=== PATIENT | female | born 1935 | race Caucasian/White ===

== ENCOUNTER 2019-02-08 14:19 | Inpatient (IN) ==
[2019-02-08] MEDS ORDERED: TYLENOL PO PRN (23:33)
[2019-02-08] MEDS ORDERED: LOMOTIL PO PRN (23:33)
[2019-02-08] MEDS ORDERED: BLISTEX MEDICATED BERRY LIP BALM TOP PRN (23:33)
[2019-02-09] MEDS: LOPRESSOR PO SCH ×3 (00:31→19:59)
[2019-02-09] MEDS: PHENERGAN PO PRN ×2 (00:31→19:59)
[2019-02-09] MEDS: PLETAL PO SCH ×3 (00:31→19:59)
[2019-02-09] MEDS: VALIUM PO PRN (00:31)
[2019-02-09] MEDS: GLUCOPHAGE XR PO SCH ×3 (00:31→16:11)
[2019-02-09] MEDS: NORCO-10 PO PRN ×2 (00:31→19:59)
[2019-02-09] MEDS: NS 1,000 ML IV SCH ×3 (00:55→16:11)
[2019-02-09 05:27] LABS: HEMATOCRIT 32.4 % (37.0-47.0); HEMOGLOBIN 10.7 g/dL (12.0-16.0); MCH 30.9 PG (27-31); MCV 93.6 FL (81-99); MPV 9.6 FL (7.4-10.4); RBC 3.46 XMIL (4.2-5.4); RDW 14.4 % (11.5-14.5); WBC 8.82 X1000 (4.8-10.8)
[2019-02-09 05:32] LABS: INR 1.52; PROTIME 18.6 Seconds (11.0-16.0)
[2019-02-09 06:22] LABS: ALB/GLOB RATIO 1.3; ALBUMIN 3.3 g/dL (3.5-5.0); CALCIUM 8.2 mg/dL (8.8-10.2); CREATININE 1.5 mg/dL (0.5-0.9); POTASSIUM 4.4 mmol/L (3.5-5.1); TOTAL BILIRUBIN 0.27 mg/dL (0.20-1.00); TOTAL PROTEIN 5.9 g/dL (6.3-8.3)
[2019-02-09] MEDS: PRILOSEC PO SCH (06:39)
[2019-02-09] MEDS: SYNTHROID PO SCH (06:39)
--- NOTE | 2019-02-09 07:22 | Diag Imaging Result Doc PS360 ---
EXAM: CHEST-1 VIEW 02/09/2019 HISTORY: routine TECHNIQUE: AP portable semiupright at 0609 COMMENT: There is mildly increased interstitial opacity generally. The heart size is not enlarged. Compared to 05/05/2017, there has been no appreciable change considering differences in inspiration. IMPRESSION: Questionable interstitial pulmonary edema. Electronically signed by Antoine Londono 02/09/2019 7:20 AM
--- NOTE | 2019-02-09 07:26 | EKG Report ---
Test Performed on : 02/09/2019 06:49:09 AM Test Reason : htn Blood Pressure : / mmHG Vent. Rate : 059 BPM Atrial Rate : 059 BPM P-R Int : 144 ms QRS Dur : 076 ms QT Int : 446 ms P-R-T Axes : 076 059 094 degrees QTc Int : 441 ms Sinus bradycardia. Possible Left atrial enlargement Borderline ECG Confirmed by Bunny BEAR, P.J.M ([id number]) on 02/10/2019 7:55:33 PM
[2019-02-09] MEDS: ESTRACE PO SCH (09:30)
[2019-02-09] MEDS: HYDROCHLOROTHIAZIDE PO SCH (09:36)
[2019-02-09] MEDS: IMODIUM PO SCH ×3 (10:05→16:11)
--- NOTE | 2019-02-09 11:34 | PROGRESS NOTE ---
DATE: 02/09/2019 SUBJECTIVE: Ms Martinez, who is an 83-year-old white female, was admitted yesterday for dehydration, chronic persistent diarrhea. She has been given IV fluids. Her BUN and creatinine indicate presence of mild renal failure with dehydration with prerenal azotemia. We are going to continue the IV fluids on her. She has chronic atrial fibrillation. cc: Hans Cummings MD
--- NOTE | 2019-02-09 14:51 | HISTORY AND PHYSICAL ---
HISTORY OF PRESENT ILLNESS: Ms. Martinez who is an 83-year-old white female, comes to the office with severe diarrhea off and on. She also had dehydration. She is in chronic atrial fibrillation and has been on Coumadin therapy. She is staying at home and her daughter takes care of her. PAST MEDICAL AND SURGICAL HISTORY: Reveals bilateral carotid endarterectomy, she had stents placed in. She had coronary artery bypass surgery. All of this was done and [place]. She had triple bypass surgery in the left leg, and she had a total hysterectomy. 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 She has been chronically anemic. Has chronic diarrhea. SOCIAL HISTORY: She has been a nonsmoker. She does not drink. ALLERGIES: Sulfa drugs. REVIEW OF SYSTEMS: Other than generalized weakness, some shortness of breath, continuing back pain, is noncontributory. MEDICATIONS: Include [place] 10, Pletal, Valium, Lomotil, Estrace, hydrochlorothiazide, levothyroxine, metformin hydrochloride, omeprazole, Phenergan, and Blistex lip balm. PHYSICAL EXAMINATION: GENERAL: The patient is alert, oriented. VITAL SIGNS: Temperature 98 degrees Fahrenheit, pulse 62 per minute, respiratory rate 18 per minute, blood pressure 151/67. HEAD: Head normocephalic. Pupils PERRLA. Fundus examination not done. NECK: Supple. JVP normal. ENT: Unremarkable. There is no evidence of lymphadenopathy, thyroid enlargement, pedal edema, calf tenderness, anemia, cyanosis or clubbing. There is presence of anemia with pallor of skin and mucous membranes. She has dryness of mucous membrane with dehydration and loss of skin turgor. BREAST EXAM: Not done. CHEST: Reveals a midline scar. Heart sounds normal, patient in atrial fibrillation. LUNGS: Reveal occasional basal rales. HEART: Pt in atrial fib ABDOMEN: Nondistended. Hernial orifice is normal. No guarding, rigidity, free fluid, masses, or organomegaly. Bowel sounds normal. RECTAL EXAM: Deferred. CENTRAL NERVOUS SYSTEM: Higher functions are normal. Cranial nerves normal. Motor and sensory system examination unremarkable except for severe pain in the spine with movements of the different muscles. Deep tendon reflexes are sluggish. Plantars downgoing. Skull and spine examination normal for age. LOCOMOTOR EXAM: Other than joint pains is negative. SKIN: Dehydration and anemia. CLINICAL IMPRESSION: 1. Chronic diarrhea. 2. Dehydration. 3. Early renal failure. PLAN: We will start IV fluids. Keep her on telemetry. cc: Hans Cummings MD MTDD
[2019-02-09] MEDS: COUMADIN PO SCH (19:59)
[2019-02-10] MEDS: NS 1,000 ML IV SCH ×2 (04:00→17:02)
[2019-02-10] MEDS: IMODIUM PO SCH ×4 (06:35→20:12)
[2019-02-10] MEDS: SYNTHROID PO SCH (06:35)
[2019-02-10] MEDS: PRILOSEC PO SCH (06:35)
[2019-02-10] MEDS: NORCO-10 PO PRN ×2 (09:40→20:21)
[2019-02-10] MEDS: LOPRESSOR PO SCH ×2 (09:41→20:11)
[2019-02-10] MEDS: GLUCOPHAGE XR PO SCH (09:41)
[2019-02-10] MEDS: ESTRACE PO SCH (09:41)
[2019-02-10] MEDS: HYDROCHLOROTHIAZIDE PO SCH (09:41)
[2019-02-10] MEDS: PLETAL PO SCH ×2 (09:41→20:11)
[2019-02-10] MEDS: LABETALOL IV PRN ×2 (09:47→20:12)
--- NOTE | 2019-02-10 11:47 | PROGRESS NOTE ---
DATE: 02/10/2019 SUBJECTIVE: Ms Martinez is recovering. She still has significant dehydration. She had prerenal azotemia as well as some chronic kidney disease, chronic atrial fibrillation, chronic diarrhea and that results into dehydration. Her oral intake is many times not satisfactory. PLAN: We will ask Physical Therapy to evaluate her and make her walk in the room. Also get a GI consult with Dr. Sheppard for chronic diarrhea. She diverticulosis and history of recurrent diverticulitis in the past. History of temporary colostomy also done in the past. We will continue the IV fluids on her. cc: Hans Cummings MD
[2019-02-10] MEDS: METAMUCIL POWDER PACKET PO SCH (14:12)
[2019-02-10] MEDS: VALIUM PO PRN (20:11)
[2019-02-10] MEDS: COUMADIN PO SCH (20:11)
[2019-02-10] MEDS: PHENERGAN PO PRN (20:21)
--- NOTE | 2019-02-10 21:57 | GASTROENTEROLOGY CONSULTATION ---
DATE: 02/10/2019 REASON FOR CONSULTATION: Chronic diarrhea. HISTORY OF PRESENT ILLNESS: Ms. Diann Martinez is an 83-year-old woman with past medical history of hypertension, hyperlipidemia, coronary artery disease, status post bypass and stents, bilateral CEAs in the past, AAA, noninsulin dependent diabetes type 2, hypothyroidism, GERD, atrial fibrillation on Coumadin, CKD stage 2, and prior colonic bowel obstruction, requiring cystectomy with ileocolonic anastomosis, who presented with progressive diarrhea, lethargy, generalized weakness, and concern for volume depletion. History primarily obtained by the patient's caregiver, her daughter, who was at bedside. 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 Since then, she has been having persistent diarrhea 4 to 5 times a day with watery stools. She has taken Lomotil regularly in the past, 2 to 3 times a day, that initially worked for her, but has not worked more recently. She reports that her diarrhea is worse after eating and less frequent when she skips a meal. No nocturnal diarrhea, rectal bleeding, or melena. She rarely has nausea associated with her pain medications. No vomiting or fevers. She says that she has lost weight over the time slowly. However, in the chart here, it looks like she has gained 5 pounds since July. She eats pretty consistently. However, her appetite has been low recently after the passing of her brother in the last couple of weeks. No dizziness, lightheadedness, or melena. She takes Aleve rarely. She has not had any recent stool studies and has not been on any fiber. Of note, the daughter started [id number] Imodium about 2 weeks ago and has noticed increased consistency of her mother's stools and less frequency. Her last colonoscopy was about 7 years ago which was reportedly unremarkable. She has had a remote EGD in the past for GERD. REVIEW OF SYSTEMS: As per HPI. Otherwise, the patient complains of some back pain which is chronic. The rest of review of systems is negative. PAST MEDICAL HISTORY: As per HPI. Other history includes chronic normocytic anemia. PAST SURGICAL HISTORY: She has had CABG, bilateral carotid artery endarterectomy, hysterectomy, left lower extremity bypass. MEDICATIONS: 1. Warfarin. 2. Metformin 1000 mg twice a day. 3. Cilostazol. 4. Lisinopril. 5. Synthroid. 6. Metoprolol. 7. Hydrochlorothiazide. 8. Clonazepam. 9. Lomotil. 10. Imodium. 11. [place]. 12. Phenergan. 13. Nitroglycerin. ALLERGIES: Sulfa. FAMILY HISTORY: No family history of GI malignancies or IBD. SOCIAL HISTORY: No alcohol or drug use. She is a smoker. PHYSICAL EXAMINATION: Vital Signs: Temperature is 97.7 degrees, heart rate is 63, respiratory rate is 17, blood pressure 208/60, O2 saturation 97% on room air. General: Patient is awake, withdrawn, in no acute distress. Keeps her eyes closed, but answers questions appropriately. HEENT: Sclerae anicteric. Moist mucous membranes. Extraocular movement is intact. Neck: Supple. No JVD or lymphadenopathy. Cardiac: Regular rate and rhythm. No murmurs. Lungs: Clear to auscultation bilaterally. Abdomen: Soft, nontender, nondistended. Normoactive bowel sounds. No rebound or guarding. Surgical scars noted. Extremities: No clubbing, cyanosis, or edema. Neurologic: Nonfocal. LABS: White count of 8.8, hemoglobin is 10.7, with an unclear baseline. She has ranged anywhere between 10 to 13 in the last several years. Platelets of 291,000. MCV is 93.6. INR is 1.5. Sodium 140, potassium 4.4, chloride of 108, bicarb of 18, BUN of 46, creatinine at baseline 1.5, glucose of 84. LFTs are within normal limits. Albumin of 3.3. PRIOR IMAGING: She had a chest x-ray that showed questionable interstitial edema yesterday. CT in February 2015 showed some ill-defined mild low-density in the body of the pancreas of questionable significance, and possible related to exaggeration of the pancreatic duct by surrounding atrophic changes. No discrete pancreatic mass or inflammation identified. She has extensive atherosclerotic calcifications, including along the celiac axis and superior mesenteric artery, mild ectasia in the infrarenal abdominal aorta measuring 2.5 cm, partially contracted gallbladder, postsurgical changes of partial right colectomy, possible mild constipation at that time. Chronic L5 and L4 degenerative changes with mild to moderate spinal stenosis. ASSESSMENT AND PLAN: Ms. 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 She has not had a colonoscopy since her surgery in 2012. She has not had any stool studies and has not been on a trial of supplemental fiber in the past. She has had some improvement with starting Imodium recently, which we will schedule with meals and at night, and she is on high doses of metformin which can also contribute to her diarrhea, which I will hold for now while she is in the hospital. We will check stool studies, including Clostridium difficile, Giardia, fecal elastase, and lactoferrin. No indication for fecal occult blood stools as this would not change our management, so I have discontinued that. For now, the family is not interested in any diagnostic procedures, including colonoscopy or endoscopy. Her prior iron studies here were in the remote past, so we will check iron studies, B12 and folate. Her TSH from July was normal. The fact that her diarrhea improves with fasting and is primarily postprandial suggests maybe a malabsorptive process over a secretory process. Iatrogenic causes from her medications is also a possibility. We will continue to trend her bowel movements and allow her to eat a mechanical soft diet. # Chronic diarrhea # GERD # AFIB # Chronic anemia # [id number] Thank you for this consult. Please call with any questions or concerns. We will follow with you. cc: Hans Cummings MD MTD
[2019-02-11 05:22] LABS: BASO# 0.02 X1000 (0.0-0.2); BASO% 0.3 % (0.0-0.8); EOS# 0.25 X1000 (0.0-0.7); EOS% 3.5 % (0.0-10.0); HEMATOCRIT 29.8 % (37.0-47.0); HEMOGLOBIN 9.4 g/dL (12.0-16.0); IMM GRAN# 0.02 X1000 (0.0-0.04); IMM GRAN% 0.3 % (0.0-0.5); LYMPH% 55.2 % (20.5-51.1); MCH 29.9 PG (27-31); MCHC 31.5 g/dL (33-37); MCV 94.9 FL (81-99); MONO# 0.43 X1000 (0.11-0.59); MONO% 5.9 % (1.7-9.3); MPV 9.3 FL (7.4-10.4); NEUT# 2.52 X1000 (1.4-6.5); NEUT% 34.8 % (42.2-75.2); PLT 257 X1000 (130-400); RBC 3.14 XMIL (4.2-5.4); RDW 14.8 % (11.5-14.5); WBC 7.24 X1000 (4.8-10.8)
[2019-02-11 05:38] LABS: IRON SATURATION 23 %; TIBC 193 ug/dL; TOTAL IRON 45 ug/dL (49-151); UNBOUND IRON 148 ug/dL (112-346)
[2019-02-11 05:43] LABS: CALCIUM 7.6 mg/dL (8.8-10.2); CREATININE 1.5 mg/dL (0.5-0.9); POTASSIUM 3.9 mmol/L (3.5-5.1)
[2019-02-11 06:07] LABS: FERRITIN 39 ng/mL (13-150)
[2019-02-11] MEDS: IMODIUM PO SCH ×4 (06:28→22:55)
[2019-02-11] MEDS: PRILOSEC PO SCH (06:28)
[2019-02-11] MEDS: NS 1,000 ML IV SCH ×2 (06:28→18:22)
[2019-02-11] MEDS: SYNTHROID PO SCH (06:28)
[2019-02-11] MEDS: LABETALOL IV PRN ×3 (06:43→20:41)
[2019-02-11] MEDS: PLETAL PO SCH ×2 (09:43→20:41)
[2019-02-11] MEDS: LOPRESSOR PO SCH ×2 (09:43→20:41)
[2019-02-11] MEDS: ESTRACE PO SCH (09:43)
[2019-02-11] MEDS: HYDROCHLOROTHIAZIDE PO SCH (09:43)
[2019-02-11] MEDS: METAMUCIL POWDER PACKET PO SCH (09:43)
--- NOTE | 2019-02-11 11:50 | PROGRESS NOTE ---
DATE: 02/11/2019 Ms. Martinez is continuing with some diarrhea. However, Imodium is helping her. She had partial colectomy. Recommendations from Dr. Hooper are noted. Her dehydration is improving. We are going to repeat the tests again in the morning. Will discuss with the family about further management. cc: Hans Cummings MD
[2019-02-11] MEDS: PHENERGAN PO PRN ×2 (12:51→20:47)
--- NOTE | 2019-02-11 15:14 | GASTROENTEROLOGY PROGRESS NOTE ---
DATE: 02/11/2019 SUBJECTIVE: Ms. Martinez is an 83-year-old female who is resting in bed. Family at the bedside. Patient was drinking her Metamucil. She has complained about nausea, but has denied any vomiting and has denied any abdominal pain. The patient had 3 bowel movements yesterday but has denied any today. OBJECTIVE: Vital Signs: Temperature 97.7 degrees, pulse 76, respirations 22, blood pressure 202/57, oxygen saturation 95% on room air. The patient's weight is 100 pounds. BMI is 17.8 kg/m2. General: She is alert and oriented x2. HEENT: Pale conjunctivae. No icterus. PERRL. Neck: Supple. Lungs: Clear to auscultation in the anterior monahan. Cardiovascular: Regular rate and rhythm. Abdomen: Soft, nontender, nondistended. Active bowel sounds heard in all 4 quadrants. Extremities: No clubbing. No cyanosis. No edema. Pedal pulses 2+, present bilaterally. Neurological: Alert and oriented x2. LABS: WBC 7.24, RBC 3.14, hemoglobin 9.4, hematocrit 29.8, platelet count 257,000. Sodium 144, potassium 3.9, chloride 112, carbon dioxide 17, anion gap 15, BUN 26, creatinine 1.5, glucose 116, calcium 7.6. Iron 45, TIBC 193, ferritin 39, vitamin B12 295, folate 9.4. TSH is 0.89. Chest x- ray on 01/2019 showed questionable interstitial pulmonary edema. IMPRESSION: 1. Diarrhea. 2. Gastroesophageal reflux disease. 3. Atrial fibrillation, on Coumadin. 4. Coronary artery disease, status post stents placement. 5. Diabetes type 2. 6. Hypothyroidism. 7. Chronic kidney disease. 8. Colonic bowel obstruction, status post cystectomy with ileocolonic anastomosis. 9. Nausea and vomiting. PLAN: The patient is currently on Imodium 2 mg twice a day for her diarrhea. She is also receiving Metamucil. For her nausea she is on antiemetic Phenergan. The patient is on IV fluids, normal saline at 80 mL for her dehydration. For her hypothyroidism, she is on levothyroxine per PCP. She is also receiving Prilosec 20 mg twice a day. We have ordered some stool studies for her, but they have not yet been collected. Family is currently not interested in any procedures. Her diarrhea is getting resolved. We will watch for her bowel movements and follow the plan of care per PCP. The plan was discussed with Dr. Hooper. Please call us with any further questions or concerns. Dictated by HALEIGH Ingram for Prosper Hooper MD cc: Hans Cummings MD Physician Attestation I have seen and examined the patient. I have discussed and reviewed the note by Nakia RICARDO and agree with findings and plan as documented. She has not had a bowel movement today to obtain stool studies. Abdomen benign. Will follow. MTDD
[2019-02-11] MEDS: VALIUM PO PRN (18:22)
[2019-02-11] MEDS: COUMADIN PO SCH (20:41)
[2019-02-11] MEDS: NORCO-10 PO PRN (20:47)
[2019-02-12] MEDS: LABETALOL IV PRN ×2 (03:35→09:24)
[2019-02-12] MEDS: NS 1,000 ML IV SCH ×2 (05:20→16:54)
[2019-02-12 06:02] LABS: CALCIUM 8.2 mg/dL (8.8-10.2); CREATININE 1.2 mg/dL (0.5-0.9); POTASSIUM 4.1 mmol/L (3.5-5.1)
[2019-02-12] MEDS: IMODIUM PO SCH ×4 (06:38→20:58)
[2019-02-12] MEDS: PRILOSEC PO SCH (06:38)
[2019-02-12] MEDS: SYNTHROID PO SCH (06:38)
[2019-02-12] MEDS: PLETAL PO SCH ×2 (09:16→20:58)
[2019-02-12] MEDS: HYDROCHLOROTHIAZIDE PO SCH (09:16)
[2019-02-12] MEDS: ESTRACE PO SCH (09:16)
[2019-02-12] MEDS: LOPRESSOR PO SCH ×2 (09:16→20:58)
[2019-02-12] MEDS: METAMUCIL POWDER PACKET PO SCH (09:17)
[2019-02-12] MEDS: PHENERGAN PO PRN (13:27)
[2019-02-12] MEDS: VALIUM PO PRN (13:27)
--- NOTE | 2019-02-12 14:27 | PROGRESS NOTE ---
DATE: 02/12/2019 Ms. Martinez is still very weak. Her BUN and creatinine are getting back to normal. The dehydration is clearing up. Stool was negative for C. difficile toxin as well as antibody. Her Giardia stool exam is negative and also Cryptosporidium antigen is negative. Her vital signs have been stable except that the blood pressure has been somewhat elevated. She has been on metoprolol at bedtime and I am going to put her on some additional blood pressure medicine, mostly Norvasc 5 mg daily. cc: Hans Cummings MD
--- NOTE | 2019-02-12 17:47 | GASTROENTEROLOGY PROGRESS NOTE ---
DATE: 02/12/2019 SUBJECTIVE: Ms. Martinez is an 83-year-old female who is resting in bed, family at the bedside. The patient was having her breakfast. She complains of occasional nausea, but has denied any vomiting or abdominal pain. So far, she had 2 bowel movements this morning. OBJECTIVE: Vital Signs: Temperature 97.8 degrees, pulse 86, respirations 16, blood pressure 202/73, oxygen saturation 96% on room air. Her weight is 100 pounds. BMI is 17.8 kg/m2. General: She is alert and oriented x3, and in no acute distress. HEENT: Pale conjunctivae. No icterus. PERRL. Neck: Supple. Lungs: Clear to auscultation in the anterior monahan. Cardiovascular: Regular rate and rhythm. Abdomen: Soft, nontender, nondistended. Active bowel sounds heard in all 4 quadrants. Extremities: No clubbing. No cyanosis. No edema. Pedal pulses 2+ present bilaterally. Neurologic: She is alert and oriented x3. LABORATORY DATA: WBCs 17.24, RBC 3.14, hemoglobin 9.4, hematocrit 29.8, platelet count 257,000. Sodium 143, potassium 4.1, chloride 115, carbon dioxide 16, anion gap 12, BUN 23, creatinine 1.2, glucose 109, calcium 8.2. IMPRESSION: 1. Diarrhea. 2. GERD. 3. Atrial fibrillation. 4. Coronary artery disease s/p stent placement. 5. Diabetes. 6. Hypothyroidism. 7. Chronic kidney disease. 8. Colonic bowel obstruction, s/p cystectomy with ileocolonic anastomosis. 9. Nausea and vomiting. PLAN: Ms. Martinez is an 83-year-old female who presented to the hospital with complaints of diarrhea. GI is following her for diarrhea. The patient currently has had 2 bowel movements. She is on IV fluids at 80 mL/h for hydration. We did her stool studies and her Giardia antigen and Cryptosporidium antigens are negative. Clostridium difficile toxin and antigen assay is negative. The patient is on Lomotil PRN and is receiving Imodium for her diarrhea. We have asked the nursing staff to hold her Imodium if she has only one or two bowel movement in a day. We will continue to watch her bowel movements and follow the plan of care per PCP. This plan was discussed with Dr. Hooper. Please call us for any further questions or concerns. Dictated by HALEIGH Ingram for Prosper Hooper MD cc: Hans Cummings MD Physician Attestation I have seen and examined the patient. I have discussed and reviewed the note by Nakia RICARDO and agree with findings and plan as documented. In brief, Ms. 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 Cdiff, giardia, celiac serologies were negative. Fecal elastase and lactoferrin are pending. She continues to have diarrhea despite schedule imodium, fiber, and prn lomotil. She has notable anemia with iron deficiency. I would recommend diagnostic EGD and colonoscopy. The patient is currently not interested and would like to think about it over the weekend. Continue supportive care. Will follow with you. MTDD
[2019-02-12] MEDS: NORCO-10 PO PRN (18:43)
[2019-02-12] MEDS: COUMADIN PO SCH (20:58)
[2019-02-13] MEDS: NS 1,000 ML IV SCH ×2 (05:16→17:33)
[2019-02-13] MEDS: IMODIUM PO SCH ×4 (06:13→20:26)
[2019-02-13] MEDS: PRILOSEC PO SCH (06:13)
[2019-02-13] MEDS: SYNTHROID PO SCH (06:13)
[2019-02-13] MEDS: VALIUM PO PRN ×2 (07:54→17:49)
[2019-02-13] MEDS: NORCO-10 PO PRN (09:37)
[2019-02-13] MEDS: PHENERGAN PO PRN ×2 (09:37→17:49)
[2019-02-13] MEDS: HYDROCHLOROTHIAZIDE PO SCH (09:39)
[2019-02-13] MEDS: LOPRESSOR PO SCH ×2 (09:39→20:27)
[2019-02-13] MEDS: METAMUCIL POWDER PACKET PO SCH (09:39)
[2019-02-13] MEDS: PLETAL PO SCH ×2 (09:39→20:27)
[2019-02-13] MEDS: ESTRACE PO SCH (09:40)
[2019-02-13] MEDS: NORVASC PO SCH (09:41)
[2019-02-13] MEDS: COUMADIN PO SCH (20:26)
--- NOTE | 2019-02-13 23:04 | PROGRESS NOTE ---
DATE: 02/13/2019 SUBJECTIVE: An 83-year-old white female admitted to the hospital on 02/08/2019 with diarrhea and dehydration. The patient was sleeping. The daughter was at bedside. REVIEW OF SYSTEMS: No abdominal pain. Continues to have loose stools in diapers. PAST MEDICAL HISTORY: Reviewed. PAST SURGICAL HISTORY: Reviewed. MEDICATIONS: Reviewed. ALLERGIES: Sulfa. OBJECTIVE: On examination, temperature is 97.4 degrees, pulse 72, blood pressure is 157/61, 94% on room air. HEENT exam when the patient is awake within normal limits. Neck is supple. Chest: Bilateral air entry. Heart sounds are regular. Belly is soft. In diapers. No obvious deficits. LABORATORY DATA: Investigations yesterday: Sodium 143, potassium 4.1, BUN 23, creatinine 1.2. IgA levels were normal. IgA for tissue transglutaminase antibody is negative. C. difficile antigen is negative as well as toxin. Cryptosporidium and Giardia were negative. ASSESSMENT AND PLAN: 1. Diarrhea. As per Dr. Hooper, follow up on pancreatic elastase and pending lactoferrin stool. 2. We will check the labs in the morning. 3. Intravenous fluids 80 mL/h. 4. Hypothyroidism, on Synthroid. 5. Hypertension, on Norvasc and Lopressor. 6. Chronic atrial fibrillation, on Coumadin. Check the PT/INR. 7. Peripheral arterial disease, bilateral carotid endarterectomy and bypass surgery, on medical management. Discussed with daughter at bedside. We will check the labs in the morning. Follow up on the pending labs. Currently stable. Level of documentation 25 minutes. cc: MD Hans Will MD
[2019-02-14] MEDS: NS 1,000 ML IV SCH ×2 (04:17→17:17)
[2019-02-14 05:48] LABS: AGAP 13; ALB/GLOB RATIO 1.2; ALBUMIN 2.9 g/dL (3.5-5.0); ALKALINE PHOSPHATASE 71 U/L (32-104); BUN 22 mg/dL (8-22); CALCIUM 7.9 mg/dL (8.8-10.2); CHLORIDE 112 mmol/L (98-107); COSMO 291; CREATININE 1.4 mg/dL (0.5-0.9); ESTIMATED GFR 36; GLUCOSE 149 mg/dL (70-104); GOT 14 U/L (10-30); GPT 5 U/L (10-36); POTASSIUM 3.9 mmol/L (3.5-5.1); SODIUM 143 mmol/L (136-145); TCO2 18 mmol/L (25-35); TOTAL BILIRUBIN < 0.15 mg/dL (0.20-1.00); TOTAL PROTEIN 5.4 g/dL (6.3-8.3)
[2019-02-14 05:53] LABS: BASO# 0.01 X1000 (0.0-0.2); BASO% 0.2 % (0.0-0.8); EOS# 0.26 X1000 (0.0-0.7); EOS% 4.2 % (0.0-10.0); HEMATOCRIT 30.8 % (37.0-47.0); HEMOGLOBIN 9.7 g/dL (12.0-16.0); LYMPH# 2.99 X1000 (1.2-3.4); LYMPH% 48.5 % (20.5-51.1); MCH 30.1 PG (27-31); MCHC 31.5 g/dL (33-37); MCV 95.7 FL (81-99); MONO# 0.41 X1000 (0.11-0.59); MONO% 6.6 % (1.7-9.3); MPV 9.5 FL (7.4-10.4); NEUT% 40.5 % (42.2-75.2); PLT 240 X1000 (130-400); RBC 3.22 XMIL (4.2-5.4); RDW 15.1 % (11.5-14.5); WBC 6.17 X1000 (4.8-10.8)
[2019-02-14] MEDS: PRILOSEC PO SCH (06:13)
[2019-02-14] MEDS: SYNTHROID PO SCH (06:13)
[2019-02-14 06:17] LABS: INR 1.24; PROTIME 15.8 Seconds (11.0-16.0)
[2019-02-14] MEDS: IMODIUM PO SCH ×4 (06:19→20:15)
[2019-02-14] MEDS: VALIUM PO PRN ×2 (09:17→20:00)
[2019-02-14] MEDS: PHENERGAN PO PRN ×2 (09:17→20:00)
[2019-02-14] MEDS: PLETAL PO SCH ×2 (09:19→20:00)
[2019-02-14] MEDS: METAMUCIL POWDER PACKET PO SCH (09:19)
[2019-02-14] MEDS: ESTRACE PO SCH (09:21)
[2019-02-14] MEDS: NORVASC PO SCH (09:21)
[2019-02-14] MEDS: HYDROCHLOROTHIAZIDE PO SCH (09:21)
[2019-02-14] MEDS: LOPRESSOR PO SCH ×2 (09:25→20:00)
--- NOTE | 2019-02-14 11:51 | PROGRESS NOTE ---
DATE: 02/14/2019 SUBJECTIVE: The patient is doing very well. She just got Valium and Phenergan. Caregiver is at bedside. She is resting well. No significant bowel movements. PHYSICAL EXAMINATION: Vital Signs: Temperature is 98 degrees, pulse is 72, blood pressure is 160/90, on room air 94%. I's and O's positive 600. HEENT Exam: No change. LABORATORY DATA: CBC: White cell count 6.1, hematocrit 30, platelets 240,000. SMA 7: Sodium 143, potassium 3.9, BUN 22, creatinine 1.4, glucose 224. LFTs were normal. ASSESSMENT AND PLAN: 1. Chronic diarrhea, dehydration. Basically, waiting for the stool for lactoferrin and pancreatic elastase. 2. The patient is atrial fibrillation on warfarin. INR is 1.2. 3. Dehydration. Continue on IV fluids. 4. Hypothyroidism on Synthroid. Follow up on the pending labs and PT consult, out of the bed and currently stable. LEVEL OF DOCUMENTATION: 25 minutes. cc: MD Hans Will MD
[2019-02-14] MEDS: COUMADIN PO SCH (20:00)
[2019-02-15] MEDS: NORCO-10 PO PRN ×2 (00:24→21:57)
[2019-02-15] MEDS: NS 1,000 ML IV SCH ×2 (04:45→17:05)
[2019-02-15] MEDS: SYNTHROID PO SCH (06:04)
[2019-02-15] MEDS: PRILOSEC PO SCH (06:04)
[2019-02-15] MEDS: IMODIUM PO SCH ×4 (07:30→21:58)
--- NOTE | 2019-02-15 09:19 | PROGRESS NOTE ---
DATE: 02/15/2019 Ms. Martinez is drowsy. She was given Phenergan or Valium earlier. Her abdomen is soft, nontender. Diarrhea has almost stopped. She occasionally needs Imodium. Lungs are clear. She continues to be in atrial fibrillation. Creatinine is 1.4, which is indicative of mild renal failure. BUN, however, has come down, indicating the clearance of dehydration. Overall prognosis is poor. She looks very weak. Physical Therapy cannot help her get out of the bed. cc: Hans Cummings MD
[2019-02-15] MEDS: METAMUCIL POWDER PACKET PO SCH (09:28)
[2019-02-15] MEDS: ESTRACE PO SCH (09:29)
[2019-02-15] MEDS: LOPRESSOR PO SCH ×2 (09:29→21:58)
[2019-02-15] MEDS: HYDROCHLOROTHIAZIDE PO SCH (09:29)
[2019-02-15] MEDS: NORVASC PO SCH (09:29)
[2019-02-15] MEDS: PLETAL PO SCH ×2 (09:30→21:56)
--- NOTE | 2019-02-15 13:51 | GASTROENTEROLOGY PROGRESS NOTE ---
DATE: 02/15/2019 SUBJECTIVE: Ms. Martinez is an 83-year-old female who is resting in bed. She is drowsy and it was hard to wake her up. She has denied any nausea, vomiting, or abdominal pain. So far, she has had 3 bowel movements since last night that were recorded this morning. OBJECTIVE: Vital Signs: Temperature 97.5 degrees, pulse 71, respirations 20, blood pressure 210/78, oxygen saturation 95% on room air. Her weight is 100 pounds. BMI is 17.8 kg/m2. General: Patient is alert, oriented x1, and drowsy. HEENT: Pale conjunctivae. No icterus PERRL. Neck: Supple. Lungs: Clear to auscultation in the anterior monahan. Cardiovascular: Regular rate and rhythm. Abdomen: Soft, nontender, nondistended. Active bowel sounds heard in all 4 quadrants. Extremities: No clubbing, no cyanosis, no edema. Pedal pulses 2+ present bilaterally. Neurologic: She is oriented x1 and drowsy. LABORATORY DATA: WBCs 6.17, RBC 3.22, hemoglobin 9.7, hematocrit 30.8, platelet count 240,000. PT 15.8, INR 1.24. Sodium 143, potassium 3.9, chloride 112, carbon dioxide 18, anion gap 13, BUN 22, creatinine 1.4, glucose 149, calcium is 7.9, total bilirubin 0.15, AST 14, ALT 5. Alkaline phos 71, albumin 2.9. IgA serum was normal. The patient's tissue transglutaminase AB IgA was negative. IMPRESSION AND PLAN: 1. Bile induced diarrhea. 2. GERD. 3. Atrial fibrillation, 4. Coronary artery disease s/p stent placement. 5. Hypothyroidism. 6. Chronic kidney disease. 7. Colonic bowel obstruction s/p cystectomy with the ileocolonic anastomosis. 8. Nausea and vomiting. PLAN: Ms. Martinez is an 83-year-old female with a history of diarrhea, partial cystectomy with ileocolonic anastomosis. GI is seeing her for her diarrhea. Her Cryptosporidium and Giardia as well as a Clostridium difficile toxins and antigens were all negative. The patient's diarrhea is getting resolved. She has denied any nausea and vomiting today. The patient's hemoglobin and hematocrit is 9.7 and 30.8. Patient and the family does not want to do any procedures for now. We will continue her Imodium and Lomotil for her diarrhea. We have also started her with cholestyramine for bile induced diarrhea. From GI standpoint patient can be discharged. This plan was discussed with Dr. Sheppard. Please call us for any further questions or concerns. Dictated by HALEIGH Ingram for Arlene Sheppard MD cc: MD Hans Castellanos MD [facility]
[2019-02-15] MEDS: QUESTRAN PO SCH (15:02)
[2019-02-15] MEDS: VALIUM PO PRN ×2 (15:02→21:58)
[2019-02-15] MEDS: LABETALOL IV PRN ×2 (17:04→22:40)
[2019-02-15] MEDS: COUMADIN PO SCH (21:58)
[2019-02-16] MEDS: NS 1,000 ML IV SCH (05:54)
[2019-02-16] MEDS: PRILOSEC PO SCH (05:59)
[2019-02-16] MEDS: SYNTHROID PO SCH (05:59)
[2019-02-16] MEDS: LOPRESSOR PO SCH (09:10)
[2019-02-16] MEDS: PLETAL PO SCH (09:10)
[2019-02-16] MEDS: HYDROCHLOROTHIAZIDE PO SCH (09:11)
[2019-02-16] MEDS: QUESTRAN PO SCH (09:11)
[2019-02-16] MEDS: METAMUCIL POWDER PACKET PO SCH (09:11)
[2019-02-16] MEDS: ESTRACE PO SCH (09:11)
[2019-02-16] MEDS: NORVASC PO SCH (09:12)
[2019-02-16] MEDS: IMODIUM PO SCH (09:13)
[2019-02-16] MEDS ORDERED: FLU VACCINE IM ONE (10:36)
--- NOTE | 2019-02-16 10:59 | PROGRESS NOTE ---
DATE: 02/16/2019 SUBJECTIVE: Ms Martinez is doing fairly well. Her vital signs are stable today. Blood pressure is down. She was given Norvasc yesterday. General condition is stable. Dehydration has improved. She is alert. Diarrhea has. PLAN: We will discharge her today. cc: Hans Cummings MD
[2019-02-16 11:44] VITALS: BP 157/64
--- NOTE | 2019-02-16 18:13 | GASTROENTEROLOGY PROGRESS NOTE ---
DATE: 02/16/2019 SUBJECTIVE: Ms. Martinez is an 83-year-old female resting in bed, with daughter at the bedside. The patient was very sleepy. She has denied any nausea, vomiting, or abdominal pain. The patient had a couple of bowel movements today. OBJECTIVE: Vital Signs: Temperature 97.5 degrees, pulse 88, respirations 29, blood pressure 190/65, oxygen saturation 93% on room air. Her weight is 100 pounds. BMI is 17.8 kg/m2. General: She is alert, oriented x1, and sleepy. HEENT: Pale conjunctivae. No icterus. PERRL. Neck: Supple. Lungs: Clear to auscultation in the anterior monahan. Cardiovascular: Regular rate and rhythm. Abdomen: Soft, nontender, and nondistended. Active bowel sounds heard in all 4 quadrants. Extremities: No clubbing, no cyanosis, no edema. Pedal pulses 2+ present bilaterally. Neurologic: She is alert, oriented x1. LABS: WBCs 6.17, RBC 3.22, hemoglobin 9.7, hematocrit 30.8, platelet count 240,000. Her chemistries are from 02/14/2019. Sodium 143, potassium 3.9, chloride 112, carbon dioxide 18, anion gap 13, BUN 12, creatinine 1.4, calcium 7.9, total bilirubin less than 0.15, AST 14, ALT 5, alkaline phos 71. Her lactoferrin fecal by LUIS was negative. IMPRESSION AND PLAN: 1. Bile induced diarrhea. 2. Gastroesophageal reflux disease. 3. Atrial fibrillation. 4. Coronary artery disease, status post stent placement. 5. Hypothyroidism. 6. Chronic kidney disease. 7. Chronic bowel obstruction, status post cystectomy with ileocolonic anastomosis. 8. Nausea and vomiting. PLAN: Ms. Martinez is an 83-year-old female with a history of diarrhea, partial cystectomy, and with ileocolonic anastomosis. GI is following her for her diarrhea. Her stool studies were all negative. The patient's diarrhea is getting resolved. She has so far had 2 bowel movements today. The patient's nausea and vomiting is also are getting resolved. Her hemoglobin and hematocrit today are 9.7 and 30.8. The patient and family have refused to do any procedures for now. The patient is getting discharged today. She will continue her Imodium and Lomotil for her diarrhea, and we also have started her on cholestyramine for her bile induced diarrhea. The patient will continue that when she is discharged. We will continue to monitor the patient and follow the plan of care per PCP. This plan was discussed with Dr. Hooper. Please call us for any further questions and concerns. Dictated by HALEIGH Ingram for Prosper Hooper MD cc: Hans Cummings MD Physician Attestation I have seen and examined the patient. I have discussed and reviewed the note by Nakia RICARDO and agree with findings and plan as documented. In brief, Ms. 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 Cdiff, giardia, lactoferrin, and celiac serologies were negative. Fecal elastase was pending. Her diarrhea has improved with supportive care using antidiarrheals and holding metformin. She does have notable WILLIE. She is not currently interested in diagnostic workup for anemia including endoscopic procedures. We discussed that there may be a treatable lesion found or even possibly a malignancy missed. She communicated understanding and does not want invasive studies. I also suggested a UGI and CT colonography as alternative studies. She is apparently being discharged with hospice services. She can follow-up with GI prn. JOE
--- NOTE | 2019-02-17 07:19 | DISCHARGE SUMMARY ---
ADMISSION DATE: 02/08/2019 DISCHARGE DATE: 02/16/2019 REASON FOR ADMISSION: Ms. Martinez was admitted with dehydration and persistent diarrhea. She had history of a partial colectomy, hypothyroidism, and atrial fibrillation. She had dehydration with some renal failure, history of hypertension. She has severe degenerative disk disease in the lumbar spine. PHYSICAL EXAMINATION: Chest x-ray revealed questionable interstitial pulmonary edema. The EKG revealed sinus bradycardia, possible left atrial enlargement and borderline EKG. Had a C diff antigen and antibody both were negative. CBC showed mild anemia, hemoglobin 9.7, white count 6.17. INR was 1.24. At one point 1.52, and blood sugar has been fluctuating. Electro ferritin test was negative. However, negative test does not rule out intestinal inflammation, trans glutamine IgE test of tissue was done. It was less than 1.2. It was negative. COURSE IN THE HOSPITAL: She was given IV fluids. Lomotil was given p.r.n., she was also using Imodium. GI consult was made. Finally, they decided that she had diarrhea because of possible bile induced diarrhea and Questran was added to the medication. Questran has been prescribed now and amlodipine. I told the family that amlodipine 5 mg can be used as p.r.n. if the blood pressure is above 150/90. She will be discharged today to home. She does not want therapy. She will be have a visit by the nurse. cc: Hans Cummings MD
== END 2019-02-16 13:08 | disposition home health service (06) | DRG 641 ==
LOC: DIRADM 14:19 → 1N 21:21
PROVIDERS: ADMIT Internal Medicine; ATTEND Internal Medicine